=== PATIENT | male | born 1960 | race African-American/Black ===

== ENCOUNTER 2021-06-15 13:20 | Observation (INO) | payer MEDICARE ==
[~2021-06-15] VITALS: Ht 185.4 cm; Wt 138.6 kg
[2021-06-15] MEDS ORDERED: MORPHINE SULFATE 4 MG/ML INJ. IV/SQ PRN (14:00)
[2021-06-15] MEDS ORDERED: ASPIRIN 325 MG TABLET PO ONE (14:00)
[2021-06-15 14:19] LABS: BASO # 0.1 x10^3/uL (0.0-0.2); BASO % 1 % (0-3); EOS # 0.1 x10^3/uL (0.0-0.7); EOS % 1 % (0-3); HEMATOCRIT 36.3 % (39.0-53.0); HEMOGLOBIN 11.6 g/dL (13.0-17.5); LYMPH # 1.5 x10^3/uL (1.0-4.8); LYMPH % 19 % (24-48); MEAN CORPUSCULAR HEMOGLOBIN 26 pg (25-35); MEAN CORPUSCULAR HGB CONC 32 g/dL (31-37); MEAN CORPUSCULAR VOLUME 80 fL (79-100); MONO # 0.7 x10^3/uL (0.0-1.1); MONO % 9 % (0-9); NEUT # 5.4 x10^3/uL (1.8-7.7); NEUT % 70 % (31-73); PLATELET COUNT 229 x10^3/uL (140-400); RED BLOOD COUNT 4.53 x10^6/uL (4.30-5.70); WHITE BLOOD COUNT 7.7 x10^3/uL (4.0-11.0)
[2021-06-15 14:22] LABS: BARBITURATES NEG (NEG); BENZODIAZEPINES NEG (NEG); CANNABINOIDS NEG (NEG); COCAINE NEG (NEG); METHADONE NEG (NEG); OPIATES POS (NEG); PHENCYCLIDINE NEG (NEG)
[2021-06-15 14:28] LABS: AMPHETAMINE/METHAMPHETAMINE NEG (NEG)
[2021-06-15 14:29] LABS: PROTHROMBIN TIME PATIENT 13.6 SEC (11.7-14.0)
[2021-06-15 14:32] LABS: BILIRUBIN,URINE NEGATIVE (NEG); CLARITY,URINE CLEAR; COLOR,URINE YELLOW
[2021-06-15 14:33] LABS: NITRITE,URINE NEGATIVE (NEG); PROTEIN,URINE NEGATIVE (NEG-TRACE); UROBILINOGEN,URINE 0.2 mg/dL (0.2 mg/dL)
[2021-06-15 14:34] LABS: BACTERIA,URINE 0 /HPF (0-FEW); RBC,URINE 0 /HPF (0-2); WBC,URINE 0 /HPF (0-4)
[2021-06-15 14:35] LABS: CALCIUM 8.2 mg/dL (8.5-10.1); CREATININE 0.8 mg/dL (0.7-1.3); GFR 119.7; POTASSIUM 3.2 mmol/L (3.5-5.1)
[2021-06-15 14:41] LABS: ALBUMIN 3.5 g/dL (3.4-5.0); MAGNESIUM 1.9 mg/dL (1.8-2.4); TOTAL BILIRUBIN 0.3 mg/dL (0.2-1.0); TOTAL PROTEIN 6.9 g/dL (6.4-8.2)
--- NOTE | 2021-06-15 14:42 | RAD ---
AP chest. HISTORY: Chest pain AP view was taken of the chest. Patient's taken a poor inspiration. There is no effusion. Heart is up per normal in size. There is crowding of the vasculature from poor inspiration. There are no confluen t areas of infiltrate. Mild vascular congestion is possible. IMPRESSION: 1. Poor inspiration. 2. Crowding of the vasculature versus mild vascular congestion. Electronically signed by: Silviano Carter MD (06/15/2021 2:40 PM) [facility]
--- NOTE | 2021-06-15 15:00 | RAD ---
Left upper extremity venous Doppler. HISTORY: Pain for one month Ultrasound was used to evaluate the veins of the left upper extremity. Real-time imaging, color-flow imaging and Doppler were utilized for evaluation. Left jugular vein has normal flow with color imagin g and Doppler. Left subclavian vein has normal flow with color imaging and Doppler. Left axillary and brachial veins compress normally and have normal flow with color imaging and Doppler. Left basilic v ein compresses normally and has normal flow with color imaging and Doppler. Left radial and ulnar vei ns at the wrist compress normally and have normal flow with color imaging and Doppler. The cephalic v ein in the proximal forearm does not compress completely. The cephalic vein in the mid forearm compre sses completely. IMPRESSION: 1. Short segment of superficial venous thrombosis in the cephalic vein in the proximal forearm. 2. No deep venous thrombosis. Electronically signed by: Silviano Carter MD (06/15/2021 2:57 PM) [facility]
--- NOTE | 2021-06-15 15:05 | PHYS DOC ---
Past Medical History Past Medical History: DVT, Hypertension Past Surgical History: No Surgical History Smoking Status: Never Smoker Alcohol Use: None Drug Use: None General Adult EDM: Chief Complaint: CHEST PAIN HPI: HPI: Patient is a 60 year old male with history of hypertension, DVT currently on Xarelto who presents to the ED today with multiple complaints. Patient is complaining of 10 out of 10 substernal chest pain nonradiating in nature, symptoms began a week ago though he states symptoms were present when he was hospitalized a month ago. Patient states a month ago he had "delta" and was hospitalized at [facility] for month. He states he was on a vent for a while. He states he was discharged on May 19, 2021 and was sent to a rehab facility. He states during his admission he complained about left upper extremity pain, he states they did two venous Dopplers of the left upper extremity which were negative. He states he has continued to have the pain. He describes the pain as sensitivity to the left upper extremity especially when people anything touch it. He states this pain is from the multiple IV sticks he had as an inpatient. He states he is taking hydrocodone with no relief. He is also complaining of shortness of breath that began after cassandra Covid. He states symptoms are worse on exertion and is currently on oxygen 1 to 2 L. Review of Systems: Review of Systems: Constitutional: Denies fever or chills. [] Eyes: Denies change in visual acuity. [] HENT: Denies nasal congestion or sore throat. [] Respiratory: Reports shortness of breath Cardiovascular: Reports chest pain GI: Denies abdominal pain, nausea, vomiting, bloody stools or diarrhea. [] : Denies dysuria. [] Musculoskeletal: Reports left upper extremity pain Integument: Denies rash. [] ] Psychiatric: Denies depression or anxiety. [] Heart Score: C/O Chest Pain: N/A Risk Factors: Risk Factors: DM, Current or recent (<one month) smoker, HTN, HLP, family history of CAD, obesity. Risk Scores: Score 0 - 3: 2.5% MACE over next 6 weeks - Discharge Home Score 4 - 6: 20.3% MACE over next 6 weeks - Admit for Clinical Observation Score 7 - 10: 72.7% MACE over next 6 weeks - Early Invasive Strategies Current Medications: Current Medications Medications (Trade) Dose Ordered Sig/[facility] Start Time Stop Time Status Last Admin Dose Admin Aspirin (Evelyn Aspirin) 325 mg 1X ONCE 06/15/21 14:00 06/15/21 14:01 DC 06/15/21 14:16 325 MG Morphine Sulfate (Morphine Sulfate) 4 mg PRN Q15MIN PRN 06/15/21 14:00 06/16/21 13:59 06/15/21 14:27 4 MG Allergies: Allergies: Allergies Coded Allergies Type Severity Reaction Last Updated Verified naproxen Allergy Unknown 12/28/13 No Physical Exam: PE: Constitutional: Well developed, well nourished, no acute distress, non-toxic appearance. [] HENT: Normocephalic, atraumatic, bilateral external ears normal, oropharynx moist, no oral exudates, nose normal. [] Eyes: PERRLA, EOMI, conjunctiva normal, no discharge. [] Neck: Normal range of motion, no tenderness, supple, no stridor. [] Cardiovascular:Heart rate regular rhythm Lungs & Thorax: Diminished breath sounds Abdomen: Bowel sounds normal, soft, no tenderness, no masses, no pulsatile masses. [] Skin: Warm, dry, no erythema, no rash. [] Back: No tenderness, no CVA tenderness. [] Extremities: Left upper extremity with no obvious bruising, no redness, no signs of infection, diffuse tenderness throughout the left upper extremity, no cyanosis, no clubbing, ROM intact, no edema. [] Neurologic: Alert and oriented X 3, normal motor function, normal sensory function, no focal deficits noted. [] Psychologic: Affect normal, judgement normal, mood normal. [] Current Patient Data: Labs: Laboratory Tests Test 06/15/21 14:00 06/15/21 14:06 White Blood Count 7.7 x10^3/uL (4.0-11.0) Red Blood Count 4.53 x10^6/uL (4.30-5.70) Hemoglobin 11.6 g/dL (13.0-17.5) L Hematocrit 36.3 % (39.0-53.0) L Mean Corpuscular Volume 80 fL (79-100) Mean Corpuscular Hemoglobin 26 pg (25-35) Mean Corpuscular Hemoglobin Concent 32 g/dL (31-37) Red Cell Distribution Width 18.0 % (11.5-14.5) H Platelet Count 229 x10^3/uL (140-400) Neutrophils (%) (Auto) 70 % (31-73) Lymphocytes (%) (Auto) 19 % (24-48) L Monocytes (%) (Auto) 9 % (0-9) Eosinophils (%) (Auto) 1 % (0-3) Basophils (%) (Auto) 1 % (0-3) Neutrophils # (Auto) 5.4 x10^3/uL (1.8-7.7) Lymphocytes # (Auto) 1.5 x10^3/uL (1.0-4.8) Monocytes # (Auto) 0.7 x10^3/uL (0.0-1.1) Eosinophils # (Auto) 0.1 x10^3/uL (0.0-0.7) Basophils # (Auto) 0.1 x10^3/uL (0.0-0.2) Prothrombin Time 13.6 SEC (11.7-14.0) Prothrombin Time INR 1.0 (0.8-1.1) Activated Partial Thromboplast Time 34 SEC (24-38) Sodium Level 143 mmol/L (136-145) Potassium Level 3.2 mmol/L (3.5-5.1) L Chloride Level 107 mmol/L (98-107) Carbon Dioxide Level 28 mmol/L (21-32) Anion Gap 8 (6-14) Blood Urea Nitrogen 14 mg/dL (8-26) Creatinine 0.8 mg/dL (0.7-1.3) Estimated GFR (Cockcroft-Gault) 119.7 BUN/Creatinine Ratio 18 (6-20) Glucose Level 154 mg/dL (70-99) H Calcium Level 8.2 mg/dL (8.5-10.1) L Magnesium Level 1.9 mg/dL (1.8-2.4) Total Bilirubin 0.3 mg/dL (0.2-1.0) Aspartate Amino Transferase (AST) 17 U/L (15-37) Alanine Aminotransferase (ALT) 32 U/L (16-63) Alkaline Phosphatase 87 U/L (46-116) Troponin I High Sensitivity 9 ng/L (4-75) Total Protein 6.9 g/dL (6.4-8.2) Albumin 3.5 g/dL (3.4-5.0) Albumin/Globulin Ratio 1.0 (1.0-1.7) Urine Collection Type Unknown Urine Color Yellow Urine Clarity Clear Urine pH 6.0 (<5.0-8.0) Urine Specific Wells 1.010 (1.000-1.030) Urine Protein Negative mg/dL (NEG-TRACE) Urine Glucose (UA) >=1000 mg/dL (NEG) Urine Ketones (Stick) Negative mg/dL (NEG) Urine Blood Negative (NEG) Urine Nitrite Negative (NEG) Urine Bilirubin Negative (NEG) Urine Urobilinogen Dipstick 0.2 mg/dL (0.2 mg/dL) Urine Leukocyte Esterase Negative (NEG) Urine RBC 0 /HPF (0-2) Urine WBC 0 /HPF (0-4) Urine Bacteria 0 /HPF (0-FEW) Urine Opiates Screen Pos (NEG) Urine Methadone Screen Neg (NEG) Urine Barbiturates Neg (NEG) Urine Phencyclidine Screen Neg (NEG) Urine Amphetamine/Methamphetamine Neg (NEG) Urine Benzodiazepines Screen Neg (NEG) Urine Cocaine Screen Neg (NEG) Urine Cannabinoids Screen Neg (NEG) Urine Ethyl Alcohol Neg (NEG) Laboratory Tests 06/15/21 14:00 Laboratory Tests 06/15/21 14:00 Vital Signs: Vital Signs Date Time Temp Pulse Resp B/P (MAP) Pulse Ox O2 Delivery O2 Flow Rate FiO2 06/15/21 14:28 70 18 189/86 (120) 99 Nasal Cannula 2.0 06/15/21 13:20 98.0 98.0 EKG: EK interpreted by Dr. Chang sinus rhythm heart rate 68 no STEMI [] Radiology/Procedures: Radiology/Procedures: []PROCEDURE: PORTABLE CHEST 1V AP chest. HISTORY: Chest pain AP view was taken of the chest. Patient's taken a poor inspiration. There is no effusion. Heart is upper normal in size. There is crowding of the vasculature from poor inspiration. There are no confluent areas of infiltrate. Mild vascular congestion is possible. IMPRESSION: 1. Poor inspiration. 2. Crowding of the vasculature versus mild vascular congestion. Electronically signed by: Silviano Carter MD (06/15/2021 2:40 PM) [facility] DICTATED and SIGNED BY: SILVIANO CARTER MD DATE: 06/15/21 [id number] 0 PROCEDURE: VENOUS UPPER EXTREMITY LEFT Left upper extremity venous Doppler. HISTORY: Pain for one month Ultrasound was used to evaluate the veins of the left upper extremity. Real-time imaging, color-flow imaging and Doppler were utilized for evaluation. Left jugular vein has normal flow with color imaging and Doppler. Left subclavian vein has normal flow with color imaging and Doppler. Left axillary and brachial veins compress normally and have normal flow with color imaging and Doppler. Left basilic vein compresses normally and has normal flow with color imaging and Doppler. Left radial and ulnar veins at the wrist compress normally and have normal flow with color imaging and Doppler. The cephalic vein in the proximal forearm does not compress completely. The cephalic vein in the mid forearm compresses completely. IMPRESSION: 1. Short segment of superficial venous thrombosis in the cephalic vein in the proximal forearm. 2. No deep venous thrombosis. Electronically signed by: Silviano Carter MD (06/15/2021 2:57 PM) [facility] DICTATED and SIGNED BY: SILVIANO CARTER MD DATE: 06/15/21 [id number] 0 Course & Med Decision Making: Course & Med Decision Making Pertinent Labs and Imaging studies reviewed. (See chart for details) This a 60-year-old male patient presented to the ED today complaining of chest pain for 1 week, patient is also complaining of left upper extremity pain, symptoms have been going on since his hospitalization 2 months ago at [facility] for COVID19. He is also complaining of shortness of breath that began after being diagnosed with COVID19 2 months ago. Vitals on arrival to the ED temperature 98.0, heart rate 79, respiration 26 on 2 L of oxygen, O2 sats 96%, blood pressure 184/85 EKG is negative, high-sensitivity troponins are negative, CBC with a normal WBC, hemoglobin 11.6 with hematocrit of 36.3, CMP with potassium of 3.2, patient was given oral potassium replacement. Venous Doppler of the left upper extremity was noted for Short segment of superficial venous thrombosis in the cephalic vein in the proximal forearm- patient is already on Xarelto Spoke with Dr. Najera who accepted patient for admission Routine consult placed for cardiology Dragon Disclaimer: Dragon Disclaimer: This electronic medical record was generated, in whole or in part, using a voice recognition dictation system. Departure Departure Impression: Primary Impression: Chest pain Qualified Codes: R07.9 - Chest pain, unspecified Additional Impressions: Shortness of breath Left upper limb pain Disposition: ADMITTED INPATIENT Condition: STABLE Referrals: JEFFERSON BERGERON (PCP) GERRI CENTENO APRN Jun 15, 2021 15:05
[2021-06-15] MEDS ORDERED: LABETALOL 20 MG/4 ML DISP.SYRIN. IVP ONE (15:15)
[2021-06-15] MEDS ORDERED: hydrALAZINE 20 MG/ML VIAL. IVP ONE (17:15)
[2021-06-15] MEDS ORDERED: POTASSIUM CHLORIDE 20 MEQ TABLET.ER. PO ONE (17:15)
[2021-06-15] MEDS ORDERED: MORPHINE SULFATE 4 MG/ML INJ. IVP PRN (17:30)
[2021-06-15] MEDS ORDERED: ONDANSETRON PF 4 MG/2 ML VIAL. IVP PRN (17:30)
[2021-06-15] MEDS ORDERED: LABETALOL 20 MG/4 ML DISP.SYRIN. IVP PRN (17:30)
[2021-06-15] MEDS ORDERED: ACETAMINOPHEN 325 MG TABLET. PO PRN (17:30)
[2021-06-15 18:18] LABS: INFLUENZA A PATIENT NEGATIVE (NEGATIVE); INFLUENZA B PATIENT NEGATIVE (NEGATIVE)
--- NOTE | 2021-06-15 18:18 | HP ---
DATE OF SERVICE: 06/15/2021 ADMIT DATE: 06/15/2021 CHIEF COMPLAINT: Chest pain. HISTORY OF PRESENT ILLNESS: The patient is a pleasant 60-year-old male who is on Xarelto for DVTs. He also has a history of hypertension. He presents today with chest pain, rated at 10/10, it began a week ago, but it got worse. He apparently had COVID-19 and was at [facility] within the past month. He was on the ventilator for a while, discharged on 05/19 and then went to rehab. While there ____ discovered the DVT, was placed on Xarelto. I discussed the case with ER physician. We are going to admit the patient. PAST MEDICAL HISTORY: DVT, hypertension, chronic anticoagulation, recent COVID-19. ALLERGIES: NAPROSYN. FAMILY HISTORY: Diabetes. SOCIAL HISTORY: He is retired, used to work as a counselor. Does not drink, smoke or take drugs. MEDICATIONS: Reviewed, please refer to the MRAD. REVIEW OF SYSTEMS: GENERAL: No history of weight change, weakness or fevers. SKIN: No bruising, hair changes or rashes. EYES: No blurred, double or loss of vision. NOSE AND THROAT: No history of nosebleeds, hoarseness or sore throat. HEART: No history of palpitations, chest pain or shortness of breath on exertion. LUNGS: Denies cough, hemoptysis, wheezing or shortness of breath. GASTROINTESTINAL: Denies changes in appetite, nausea, vomiting, diarrhea or constipation. GENITOURINARY: No history of frequency, urgency, hesitancy or nocturia. NEUROLOGIC: Denies history of numbness, tingling, tremor or weakness. PSYCHIATRIC: No history of panic, anxiety or depression. ENDOCRINE: No history of heat or cold intolerance, polyuria or polydipsia. EXTREMITIES: Denies muscle weakness, joint pain, pain on walking or stiffness. PHYSICAL EXAMINATION: VITALS: Within normal limits and are stable. GENERAL: No apparent distress. Alert and oriented. HEENT: Normal cephalic atraumatic, external auditory canals are patent. EYES: Extraocular muscles are intact, pupils are equally round and reactive to light and accommodation. MUSCULOSKELETAL: Well developed, well nourished, good range of motion. ENDOCRINE: No thyromegaly was palpated. LYMPHATICS: No cervical chain or axillary nodes were noted. HEMATOPOIETIC: No bruising. NECK: Supple, no JVD, no thyromegaly was noted. LUNGS: Clear to auscultation in all lung oliver without rhonchi or wheezing. HEART: RRR, S1, S2 present. Peripheral pulses intact, no obvious murmurs were noted. ABDOMEN: Soft, nontender. Positive bowel sounds no organomegaly, normal bowel sounds. EXTREMITIES: Without any cyanosis, clubbing, or edema. Pedal pulses intact, Homans sign is negative. NEUROLOGIC: Normal speech, normal tone. A and O x3, moves all extremities, no obvious focal deficits. PSYCHIATRIC: Normal affect, normal mood. Stable. SKIN: No ulcerations or rashes, good skin turgor, no jaundice. VASCULAR: Good capillary refill, neurovascular bundle appears to be intact. LABORATORY DATA: Troponin is normal at 9. BNP is slightly high at 168. White count 7, hemoglobin 11.6, platelets 229. INR is 1. Urinalysis negative. Drug screen positive for opiates. Chest x-ray, poor inspiration effort with some mild vascular congestion. Upper extremity ultrasound showed no DVT. ASSESSMENT AND PLAN: Chest pain, rule out coronary artery disease, hypokalemia. The patient will be admitted. We will check serial enzymes, serial EKGs. Consult Cardiology. Home meds. Deep venous thrombosis prophylaxis. Full code. Cardiac monitoring. Replace his potassium. ANT/ALIS DR: Pedro TID: [id number]
[2021-06-15 19:35] VITALS: BP 175/91
[2021-06-15] MEDS ORDERED: RIVA20TA2 PO (19:38)
[2021-06-15] MEDS ORDERED: BYSTOLIC10 MG PO (19:38)
[2021-06-15] MEDS ORDERED: CRESTOR40 MG PO (19:39)
[2021-06-15] MEDS ORDERED: GLIM2TAB7 PO (19:40)
[2021-06-15] MEDS ORDERED: OMEP40CA7 PO (19:41)
[2021-06-15] MEDS ORDERED: HYDR50TA9 PO (19:41)
[2021-06-15] MEDS ORDERED: AMLO1CAP2 PO (19:41)
[2021-06-15] MEDS ORDERED: HYDR-2769 PO (19:42)
[2021-06-15] MEDS ORDERED: GABA600T7 PO (19:43)
[2021-06-15] MEDS ORDERED: ASPI81TA59 PO (19:44)
[2021-06-15] MEDS ORDERED: HYDR25TA PO (19:46)
[2021-06-15] MEDS ORDERED: TIZA-75 PO (19:46)
[2021-06-15] MEDS ORDERED: TADA5TAB PO (19:47)
[2021-06-15] MEDS ORDERED: DICL20GE TP (19:49)
[2021-06-15] MEDS ORDERED: hydrOXYzine 25 MG TABLET PO PRN (21:00)
[2021-06-15] MEDS ORDERED: DICLOFENAC SODIUM 1% TOPICAL GEL 100GM TUBE. TP PRN (21:00)
[2021-06-15] MEDS ORDERED: ATORVASTATIN CALCIUM 40 MG TABLET. PO SCH (21:00)
[2021-06-15] MEDS ORDERED: GABAPENTIN 300 MG CAPSULE. PO SCH ×2 (21:00→21:26)
[2021-06-15] MEDS ORDERED: tiZANidine 4 MG TABLET. PO PRN (21:00)
[2021-06-15] MEDS: METOPROLOL TART IMMED RELEASE 50 MG TABLET. PO SCH (21:00)
[2021-06-15] MEDS ORDERED: HYDR-2869 PO (21:11)
[2021-06-15] MEDS ORDERED: EMPA25TA3 PO (21:23)
[2021-06-15] MEDS ORDERED: RIVAROXABAN 10 MG TABLET. PO SCH (21:30)
[2021-06-15] MEDS: GLIMEPIRIDE 2 MG TABLET. PO SCH (21:32)
[2021-06-15] MEDS: HYDROcodone/APAP 10/325 1 TAB TABLET PO PRN (21:32)
[2021-06-15 22:50] VITALS: BP 166/85
[2021-06-16 02:50] VITALS: BP 189/96
[2021-06-16 05:21] VITALS: BP 167/91
--- NOTE | 2021-06-16 05:21 | EKG ---
[facility] [address] [place] [address] Test Date: 2021-06-15 Test Time: 13:27:05 Pat Name: DOMINIK NOGUEIRA Department: Room: 1 1 Gender: M [employer] Analyst: : 1960 Requested By: GERRI CENTENO Order Number: [id number] Reading MD: Kayode Wharton MD Measurements Intervals [place] Rate: 79 P: 39 [place]: 172 QRS: 4 QRSD: 94 T: 63 QT: 460 QTc: 529 Interpretive Statements SINUS RHYTHM Electronically Signed On 06-16-2021 11:00:12 [facility] by Kayode Wharton MD
[2021-06-16 06:26] LABS: BASO # 0.1 x10^3/uL (0.0-0.2); BASO % 1 % (0-3); EOS # 0.1 x10^3/uL (0.0-0.7); EOS % 2 % (0-3); HEMATOCRIT 36.2 % (39.0-53.0); HEMOGLOBIN 11.9 g/dL (13.0-17.5); LYMPH # 1.4 x10^3/uL (1.0-4.8); LYMPH % 19 % (24-48); MEAN CORPUSCULAR HEMOGLOBIN 26 pg (25-35); MEAN CORPUSCULAR HGB CONC 33 g/dL (31-37); MEAN CORPUSCULAR VOLUME 78 fL (79-100); MONO # 0.6 x10^3/uL (0.0-1.1); MONO % 7 % (0-9); NEUT # 5.3 x10^3/uL (1.8-7.7); NEUT % 71 % (31-73); PLATELET COUNT 228 x10^3/uL (140-400); RED BLOOD COUNT 4.65 x10^6/uL (4.30-5.70); RED CELL DISTRIBUTION WIDTH 17.7 % (11.5-14.5); WHITE BLOOD COUNT 7.5 x10^3/uL (4.0-11.0)
[2021-06-16 06:43] LABS: ALBUMIN 3.5 g/dL (3.4-5.0); ALBUMIN/GLOBULIN RATIO 0.9 (1.0-1.7); CALCIUM 8.3 mg/dL (8.5-10.1); CREATININE 0.7 mg/dL (0.7-1.3); GFR 139.7; POTASSIUM 3.2 mmol/L (3.5-5.1); TOTAL BILIRUBIN 0.4 mg/dL (0.2-1.0); TOTAL PROTEIN 7.4 g/dL (6.4-8.2)
[2021-06-16 07:00] VITALS: BP 196/64
--- NOTE | 2021-06-16 07:24 | EKG ---
[facility] [address] [place] [address] Test Date: 2021-06-15 Test Time: 14:34:08 Pat Name: DOMINIK NOGUEIRA Department: Room: 1 1 Gender: M Generation Engineer: : 1960 Requested By: GERRI CENTENO Order Number: [id number] Reading MD: Kayode Wharton MD Measurements Intervals [place] Rate: 68 P: 34 [place]: 178 QRS: -4 QRSD: 96 T: 5 QT: 424 QTc: 456 Interpretive Statements SINUS RHYTHM Electronically Signed On 06-16-2021 10:59:59 ASSOCIATE PATHOLOGIST by Kayode Wharton MD
[2021-06-16] MEDS ORDERED: PANTOPRAZOLE 40 MG TABLET.DR. PO SCH (07:30)
--- NOTE | 2021-06-16 08:13 | PDOC2 ---
[facility] [employer] 06/16/21 0813: CARDIAC CONSULT DATE OF CONSULT Date of Consult DATE: 06/16/21 TIME: 08:06 REASON FOR CONSULT Reason for Consult: Chest pain REFERRING PHYSICIAN Referring Physician: Leana SOURCE Source: Chart review, Patient HISTORY OF PRESENT ILLNESS HISTORY OF PRESENT ILLNESS This is a pleasant 60 yo male admitted for complains of chest pain. Reports of midchest burning nonradiating in the last 4-5 days. It seems that this occurs after meals particularly in the morning. He doubled his prilosec and actually got better. He has been taking tums. He has SOA but this has been chronic since he had Covid-19 PNA in 04/2021 and actually was on a ventilator at [facility] and no PE but noted with RLE DVT at that time. He has been getting outpt rehab and his breathing has been improving. He does utilize 2LPM at rest of O2 and 5 LPM when ambulating and no changes with requirement. Denies any palpitations, syncopal symptoms. No n/v. No jaw tightness. He does have this pain to his left arm and appear to be hyperesthesia and could not elevate the arm above his shoulder. He is suppose to see an orthopaedic MD. No recent falls or injury. He was told he had a heart attack 3 yrs ago in [place] but no procedures and had reported LHC and no noted blockages but unclear if he had any lesions. He is presently CP free. His BP has been up and down at home. PAST MEDICAL HISTORY Cardiovascular: HTN, Hyperlipidemia Pulmonary: Pneumonia, Other (Covid-19 04/2021; home O2 use) CENTRAL NERVOUS SYSTEM: Other (No pertinent history) GI: GERD Heme/Onc: No pertinent hx, Other (DVT 04/2021) Psych: No pertinent hx Musculoskeletal: Osteoarthritis Rheumatologic: No pertinent hx Infectious disease: No pertinent hx ENT: No pertinent hx Renal/: Other (Prostate issue) Endocrine: Diabetes Dermatology: No pertinent hx PAST SURGICAL HISTORY Past Surgical History: No pertinent history FAMILY HISTORY Family History: Hypertension SOCIAL HISTORY Smoke: No CURRENT MEDICATIONS CURRENT MEDICATIONS Current Medications Medications (Trade) Dose Ordered Sig/Andreas Route PRN Reason Start Time Stop Time Status Last Admin Dose Admin Aspirin (Evelyn Aspirin) 325 mg 1X ONCE PO 06/15/21 14:00 06/15/21 14:01 DC 06/15/21 14:16 Morphine Sulfate (Morphine Sulfate) 4 mg PRN Q15MIN PRN IV/SQ PAIN GREATER THAN 3/10 06/15/21 14:00 06/16/21 13:59 06/15/21 14:27 Labetalol HCl (Normodyne Iv Push) 10 mg 1X ONCE IVP 06/15/21 15:15 06/15/21 15:16 DC 06/15/21 15:21 Hydralazine HCl (Apresoline Inj) 10 mg 1X ONCE IVP 06/15/21 17:15 06/15/21 17:16 DC 06/15/21 17:18 Potassium Chloride (Klor-Con) 40 meq 1X ONCE PO 06/15/21 17:15 06/15/21 17:16 DC 06/15/21 17:16 Morphine Sulfate (Morphine Sulfate) 4 mg PRN Q2HR PRN IVP PAIN 06/15/21 17:30 06/16/21 17:29 06/15/21 18:17 Glimepiride (Amaryl) 2 mg BIDWMEALS PO 06/15/21 22:00 06/15/21 21:32 Acetaminophen/ Hydrocodone Bitart (Lortab 10/325) 1 tab PRN Q4HRS PRN PO PAIN 06/15/21 21:00 06/15/21 21:32 Hydroxyzine HCl (Atarax) 50 mg QHS PRN PO INSOMNIA 06/15/21 21:00 06/15/21 21:34 Rivaroxaban (Xarelto) 20 mg DAILYWSUP PO 06/15/21 21:30 06/15/21 21:32 Hydralazine HCl (Apresoline) 50 mg TID PO 06/15/21 22:00 06/15/21 21:31 Gabapentin (Neurontin) 600 mg QHS PO 06/15/21 21:26 06/15/21 21:31 ALLERGIES ALLERGIES: Coded Allergies: naproxen (Unverified Allergy, Intermediate, 06/15/21) ROS Review of System 14 point ROS evaluated with pertinent positives noted per HPI PHYSICAL EXAM General: Alert, Oriented X3, Cooperative, No acute distress HEENT: Atraumatic, Mucous membr. moist/pink Lungs: Clear to auscultation, Normal air movement Heart: Regular rate (SR), Other (distnat heart sounds) Abdomen: Soft, No tenderness, Other (obese) Extremities: No cyanosis, Other (1+ bilateral LE pitting edema) Skin: No breakdown, No significant lesion Neuro: Normal speech, Sensation intact Psych/Mental Status: Mental status NL, Mood NL MUSCULOSKELETAL: Other (limited left shoulder ROM) VITALS/I&O VITALS/I&O: Vital Signs Date Time Temp Pulse Resp B/P (MAP) Pulse Ox O2 Delivery O2 Flow Rate FiO2 06/16/21 05:21 70 167/91 (116) 06/16/21 02:50 98.1 20 94 Nasal Cannula 2.0 98.1 I & O 06/15/21 06/15/21 06/16/21 15:00 23:00 07:00 Intake Total 0 ml 0 ml Output Total 150 ml Balance 0 ml -150 ml LABS Lab: Laboratory Tests Test 06/15/21 14:00 06/15/21 14:06 06/15/21 16:02 06/15/21 17:50 White Blood Count 7.7 x10^3/uL (4.0-11.0) Red Blood Count 4.53 x10^6/uL (4.30-5.70) Hemoglobin 11.6 g/dL (13.0-17.5) L Hematocrit 36.3 % (39.0-53.0) L Mean Corpuscular Volume 80 fL (79-100) Mean Corpuscular Hemoglobin 26 pg (25-35) Mean Corpuscular Hemoglobin Concent 32 g/dL (31-37) Red Cell Distribution Width 18.0 % (11.5-14.5) H Platelet Count 229 x10^3/uL (140-400) Neutrophils (%) (Auto) 70 % (31-73) Lymphocytes (%) (Auto) 19 % (24-48) L Monocytes (%) (Auto) 9 % (0-9) Eosinophils (%) (Auto) 1 % (0-3) Basophils (%) (Auto) 1 % (0-3) Neutrophils # (Auto) 5.4 x10^3/uL (1.8-7.7) Lymphocytes # (Auto) 1.5 x10^3/uL (1.0-4.8) Monocytes # (Auto) 0.7 x10^3/uL (0.0-1.1) Eosinophils # (Auto) 0.1 x10^3/uL (0.0-0.7) Basophils # (Auto) 0.1 x10^3/uL (0.0-0.2) Prothrombin Time 13.6 SEC (11.7-14.0) Prothrombin Time INR 1.0 (0.8-1.1) Activated Partial Thromboplast Time 34 SEC (24-38) Sodium Level 143 mmol/L (136-145) Potassium Level 3.2 mmol/L (3.5-5.1) L Chloride Level 107 mmol/L (98-107) Carbon Dioxide Level 28 mmol/L (21-32) Anion Gap 8 (6-14) Blood Urea Nitrogen 14 mg/dL (8-26) Creatinine 0.8 mg/dL (0.7-1.3) Estimated GFR (Cockcroft-Gault) 119.7 BUN/Creatinine Ratio 18 (6-20) Glucose Level 154 mg/dL (70-99) H Calcium Level 8.2 mg/dL (8.5-10.1) L Magnesium Level 1.9 mg/dL (1.8-2.4) Total Bilirubin 0.3 mg/dL (0.2-1.0) Aspartate Amino Transferase (AST) 17 U/L (15-37) Alanine Aminotransferase (ALT) 32 U/L (16-63) Alkaline Phosphatase 87 U/L (46-116) Troponin I High Sensitivity 9 ng/L (4-75) 10 ng/L (4-75) AK-Oog-R-Type Natriuretic Peptide 168 pg/mL (0-124) H Total Protein 6.9 g/dL (6.4-8.2) Albumin 3.5 g/dL (3.4-5.0) Albumin/Globulin Ratio 1.0 (1.0-1.7) Urine Collection Type Unknown Urine Color Yellow Urine Clarity Clear Urine pH 6.0 (<5.0-8.0) Urine Specific [place] 1.010 (1.000-1.030) Urine Protein Negative mg/dL (NEG-TRACE) Urine Glucose (UA) >=1000 mg/dL (NEG) Urine Ketones (Stick) Negative mg/dL (NEG) Urine Blood Negative (NEG) Urine Nitrite Negative (NEG) Urine Bilirubin Negative (NEG) Urine Urobilinogen Dipstick 0.2 mg/dL (0.2 mg/dL) Urine Leukocyte Esterase Negative (NEG) Urine RBC 0 /HPF (0-2) Urine WBC 0 /HPF (0-4) Urine Bacteria 0 /HPF (0-FEW) Urine Opiates Screen Pos (NEG) Urine Methadone Screen Neg (NEG) Urine Barbiturates Neg (NEG) Urine Phencyclidine Screen Neg (NEG) Urine Amphetamine/Methamphetamine Neg (NEG) Urine Benzodiazepines Screen Neg (NEG) Urine Cocaine Screen Neg (NEG) Urine Cannabinoids Screen Neg (NEG) Urine Ethyl Alcohol Neg (NEG) Influenza Type A Antigen Negative (NEGATIVE) Influenza Type B Antigen Negative (NEGATIVE) SARS-CoV-2 Antigen (Rapid) Negative (NEGATIVE) Test 06/15/21 19:00 06/15/21 21:01 06/16/21 05:50 06/16/21 07:42 Troponin I High Sensitivity 10 ng/L (4-75) Glucose (Fingerstick) 196 mg/dL (70-99) H 134 mg/dL (70-99) H White Blood Count 7.5 x10^3/uL (4.0-11.0) Red Blood Count 4.65 x10^6/uL (4.30-5.70) Hemoglobin 11.9 g/dL (13.0-17.5) L Hematocrit 36.2 % (39.0-53.0) L Mean Corpuscular Volume 78 fL (79-100) L Mean Corpuscular Hemoglobin 26 pg (25-35) Mean Corpuscular Hemoglobin Concent 33 g/dL (31-37) Red Cell Distribution Width 17.7 % (11.5-14.5) H Platelet Count 228 x10^3/uL (140-400) Neutrophils (%) (Auto) 71 % (31-73) Lymphocytes (%) (Auto) 19 % (24-48) L Monocytes (%) (Auto) 7 % (0-9) Eosinophils (%) (Auto) 2 % (0-3) Basophils (%) (Auto) 1 % (0-3) Neutrophils # (Auto) 5.3 x10^3/uL (1.8-7.7) Lymphocytes # (Auto) 1.4 x10^3/uL (1.0-4.8) Monocytes # (Auto) 0.6 x10^3/uL (0.0-1.1) Eosinophils # (Auto) 0.1 x10^3/uL (0.0-0.7) Basophils # (Auto) 0.1 x10^3/uL (0.0-0.2) Sodium Level 142 mmol/L (136-145) Potassium Level 3.2 mmol/L (3.5-5.1) L Chloride Level 106 mmol/L (98-107) Carbon Dioxide Level 28 mmol/L (21-32) Anion Gap 8 (6-14) Blood Urea Nitrogen 12 mg/dL (8-26) Creatinine 0.7 mg/dL (0.7-1.3) Estimated GFR (Cockcroft-Gault) 139.7 BUN/Creatinine Ratio 17 (6-20) Glucose Level 139 mg/dL (70-99) H Calcium Level 8.3 mg/dL (8.5-10.1) L Total Bilirubin 0.4 mg/dL (0.2-1.0) Aspartate Amino Transferase (AST) 20 U/L (15-37) Alanine Aminotransferase (ALT) 30 U/L (16-63) Alkaline Phosphatase 87 U/L (46-116) Total Protein 7.4 g/dL (6.4-8.2) Albumin 3.5 g/dL (3.4-5.0) Albumin/Globulin Ratio 0.9 (1.0-1.7) L Laboratory Tests 06/15/21 14:00 06/16/21 05:50 Laboratory Tests 06/15/21 14:00 06/16/21 05:50 ASSESSMENT/PLAN ASSESSMENT/PLAN 1. Atypical chest pain: possibly GI 2. HTN urgency: appears to be uncontrolled at home 3. HLP 4. Possible prior hx of CAD 5. DM2 6. Morbid obesity 7. Hx of recent covid-19 PNA/ARDS with likely post acute covid-19 syndrome 8. recent RLE DVT and superficial venours thrombosis to left arm: noted 04/2021 at [facility] 9. Chronic respiratory failure: uses home O2 2LPM at rest and 5LPM with activity Recommendations 1. TTE 2. Resume home BP meds and adjustment per trend 3. PPI per PCP 4. Secondary prevention measures 5. Continue home xarelto 6. With his cardiac risk factors, will arrange for outpt lexiscan KATRAPATI,SKINNY S MD 06/16/21 1023: CARDIAC CONSULT ASSESSMENT/PLAN ASSESSMENT/PLAN The patient was seen and interviewed as well as examined at the bedside. The chart was reviewed. The case was discussed. Agree with the plan of care. JAVIER ADAIR APRN Jun 16, 2021 08:13 SKINNY STANTON MD Jun 16, 2021 10:23
[2021-06-16] MEDS ORDERED: POTASSIUM CHLORIDE 20 MEQ TABLET.ER. PO ONE (08:15)
[2021-06-16] MEDS ORDERED: hydroCHLOROthiazide 25 MG TABLET PO SCH (09:00)
[2021-06-16] MEDS ORDERED: ASPIRIN CHEWABLE 81 MG TABLET. PO SCH (09:00)
[2021-06-16] MEDS: METOPROLOL TART IMMED RELEASE 50 MG TABLET. PO SCH (09:00)
[2021-06-16] MEDS ORDERED: EMPAGLIFLOZIN 25 MG TABLET. PO SCH (09:00)
[2021-06-16] MEDS ORDERED: LISINOPRIL 20 MG TABLET PO SCH (09:00)
[2021-06-16] MEDS ORDERED: NON FORMULARY ITEM (Tadalafil (Cialis) 1 TAB) PO SCH (09:00)
[2021-06-16] MEDS: GLIMEPIRIDE 2 MG TABLET. PO SCH (09:14)
[2021-06-16] MEDS: HYDROcodone/APAP 10/325 1 TAB TABLET PO PRN ×2 (09:22→15:26)
[2021-06-16] MEDS ORDERED: LISI-130 PO (10:48)
--- NOTE | 2021-06-16 10:50 | SNU/HH DC ---
DISCHARGE WITH HOME HEALTH DISCHARGE INFORMATION: Final Diagnosis: Problems Medical Problems: (1) Chest pain Status: Acute (2) Left upper limb pain Status: Acute (3) Shortness of breath Status: Acute Condition on Discharge: Stable CODE STATUS: Code Status: Full HOME HEALTH: Face to Face: I certify this patient is under my care and that I, or a nurse practitioner or physician's product safety technical assistant working with me, had a face to face encounter that meets the physician face to face encounter requirements with this patient on []. Medical Complications: Other (Resolving atypical chest pain/recent history of Covid-19) Half-Way For: Assess Cardiopulm Status RN For Eval/Treatment: Yes Physical Therapy For: Evalulation/Treatment Occupational Therapy For: Evaluation/Treatment Home Health Aide For: Self-care [employer] For: Community Resources Pt Meets Homebound Status: Poor coordination w/ amb. POST DISCHARGE ORDERS: DIET AFTER DISCHARGE: Cardiac CERTIFICATION STATEMENT: Certification Statement: Certification Statement: Based on the above finding, I certify that this patient is confined to the home and needs intermittent halfway care, physical therapy and/or speech therapy, or continues to need occupational therapy.~ This patient is under my care, and I have initiated the establishment of the plan of care.~ This patient will be followed by myself or a community physician who will periodically review the plan of care. Home Meds Active Scripts Lisinopril (LISINOPRIL) 40 Mg Tablet, 40 MG PO DAILY for . for 90 Days, #90 TAB Prov:GORDON PIÑA K III DO 06/16/21 Reported Medications Empagliflozin (JARDIANCE) 25 Mg Tablet, 25 MG PO DAILY for Type 2 diabetes, TAB 06/15/21 Hydralazine Hcl (HYDRALAZINE HCL) 50 Mg Tablet, 1 TAB PO TID for , #90 TAB 5 Refills 06/15/21 Diclofenac Sodium (Voltaren Arthritis Pain) 20 Gm Gel..gram., 20 GM TP QID PRN for PAIN, EACH 06/15/21 Tadalafil (CIALIS) 5 Mg Tablet, 1 TAB PO DAILY for for prostate issues, #30 TAB 5 Refills 06/15/21 Tizanidine Hcl (TIZANIDINE HCL) 4 Mg Tablet, 1 TAB PO TID PRN for MUSCLE SPASMS, #90 TAB 06/15/21 Hydroxyzine Hcl (HYDROXYZINE HCL) 25 Mg Tablet, 2 TAB PO QHS PRN for INSOMNIA, #30 TAB 06/15/21 Aspirin (Children's Aspirin) 81 Mg Tab.chew, 1 TAB PO DAILY for for 30 Days, #30 TAB 0 Refills 06/15/21 Gabapentin (GABAPENTIN) 600 Mg Tablet, 600 MG PO QHS PRN for PAIN, TAB 06/15/21 Hydrocodone Bit/Acetaminophen (HYDROCODONE-APAP 10-325 ) 1 Tab Tablet, 1 TAB PO PRN Q4HRS PRN for PAIN, TAB 0 Refills 06/15/21 Amlodipine Besylate/Benazepril (LOTREL 10-40 MG CAPSULE) 1 Each Capsule, 1 CAP PO DAILY for , #30 CAP 5 Refills 06/15/21 Omeprazole (OMEPRAZOLE) 40 Mg Capsule.dr, 1 CAP PO DAILY for , #30 CAP 3 Refills 06/15/21 Glimepiride (GLIMEPIRIDE) 2 Mg Tablet, 1 TAB PO BID for , #30 TAB 5 Refills 06/15/21 Rosuvastatin Calcium (CRESTOR) 40 Mg Tablet, 0.5 TAB PO HS for , #30 TAB 5 Refi lls 06/15/21 Nebivolol Hcl (BYSTOLIC) 10 Mg Tablet, 10 MG PO DAILY for , TAB 06/15/21 Rivaroxaban (XARELTO) 20 Mg Tablet, 1 TAB PO QHS for for 30 Days, #30 TAB 0 Refills with food 06/15/21 Discontinued Reported Medications Hydrochlorothiazide (HYDROCHLOROTHIAZIDE TABLET) 50 Mg Tablet, 50 MG PO TID for DIURETIC, TAB 0 Refills 06/15/21 GORDON PIÑA III DO Jun 16, 2021 10:50
[2021-06-16 11:00] VITALS: BP 155/85
--- NOTE | 2021-06-16 11:25 | NUR ---
SS following for discharge planning. SS reviewed pt chart and discussed with pt RN. Pt is currently requiring oxygen at two liters nasal canula. COVID19 negative. Pt has home oxygen. Discharge order on the chart for home with self care.
[2021-06-16 12:30] VITALS: BP 196/64
--- NOTE | 2021-06-16 12:46 | DS ---
DATE OF DISCHARGE: 06/16/2021 ADMITTING DIAGNOSES: Chest pain, hypokalemia. DISCHARGE DIAGNOSES: Resolving atypical chest pain, resolving hypokalemia, history of deep vein thrombosis, hypertension, chronic anticoagulation, recent COVID-19. CONSULTS: Cardiology. PROCEDURES: None. HOSPITAL COURSE: The patient is a pleasant middle-aged male who presented with chest pain. We admitted him, did serial enzymes, serial EKGs. We consulted Cardiology, it is felt his pain is atypical. They recommend discharge on home blood pressure meds and they will arrange for an outpatient Lexiscan. DISPOSITION: Home. ACTIVITY: As tolerated. DIET: Low sodium. DISCHARGE MEDICATIONS: Please see the MRAD. Amlodipine/benazepril 10/40 one a day, lisinopril 40 a day, aspirin 81 a day, Voltaren, Jardiance 25 a day, gabapentin 600 at bedtime, glimepiride 2 b.i.d., hydralazine 50 a day, hydrocodone p.r.n., hydroxyzine 2 tabs at bedtime, Bystolic 10 mg daily, omeprazole 40 a day, Xarelto 20 a day, Crestor 20 a day, Cialis 5 daily, and tizanidine 4 t.i.d. p.r.n. TOTAL TIME: [address]: ANT/olu TID: [id number]
--- NOTE | 2021-06-16 18:03 | NUR ---
Discharge Note: DOMINIK NOGUEIRA [facility] Discharge instructions and discharge home medications reviewed with Patient and a copy given. All questions have been answered and understanding verbalized.
== END 2021-06-16 18:06 | disposition home or self-care (01) ==
LOC: ER 13:20 → INTOOBSV 17:05 → 6 SOUTH 17:05
PROVIDERS: ADMIT Internal Medicine; ATTEND Internal Medicine
DX: R07.89 Other chest pain (principal); Z20.822 Contact with and (suspected) exposure to COVID-19; E87.6 Hypokalemia; I25.10 Atherosclerotic heart disease of native coronary artery without angina pectoris; I10 Essential (primary) hypertension; Z86.718 Personal history of other venous thrombosis and embolism; Z86.16 Personal history of COVID-19; Z87.01 Personal history of pneumonia (recurrent); J96.10 Chronic respiratory failure, unspecified whether with hypoxia or hypercapnia; E11.9 Type 2 diabetes mellitus without complications; E66.01 Morbid (severe) obesity due to excess calories; E78.5 Hyperlipidemia, unspecified; I16.0 Hypertensive urgency; I25.2 Old myocardial infarction; I82.619 Acute embolism and thrombosis of superficial veins of unspecified upper extremity; M19.90 Unspecified osteoarthritis, unspecified site; K21.9 Gastro-esophageal reflux disease without esophagitis; M25.512 Pain in left shoulder; Z79.01 Long term (current) use of anticoagulants; Z79.899 Other long term (current) drug therapy; Z98.890 Other specified postprocedural states
CPT/HCPCS: 36415; 71045; 80053; 80307; 81001; 82962; 83735; 83880; 84484; 85025; 85610; 85730; 87428; 93005; 93971; 96374; 96375; 96376; 99285; G0378; J0360; J2270; J3490; U0003; G0379

== ENCOUNTER → 2021-09-03 | Outpatient (CLI) | payer MEDICARE ==
[~2021-09-03] MED LIST: AMLO1CAP2 PO; ASPI81TA59 PO; BYSTOLIC10 MG PO; CRESTOR40 MG PO; DICL20GE TP; EMPA25TA3 PO; GABA600T7 PO; GLIM2TAB7 PO; HYDR-2769 PO; HYDR-2869 PO; HYDR25TA PO; HYDR50TA9 PO; LISI-130 PO; OMEP40CA7 PO; RIVA20TA2 PO; TADA5TAB PO; TIZA-75 PO
--- NOTE | 2021-09-03 11:20 | KCIC ---
EXAMINATION: US DPLX VENOUS EXTREMITY LOWER RT (LOWER EXTREMITY VENOUS ULTRASOUND) CLINICAL HISTORY: Follow-up right lower extremity DVT. TECHNIQUE: Sonographic grayscale images obtained of the right lower extremity deep venous system with color flow Doppler, compression, and augmentation techniques as indicated. Images obtained and stor ed in a permanent archive. COMPARISON: None available FINDINGS: No evidence of absent flow or incompressibility within the common femoral vein, femoral vein, or popl iteal vein. Visualized calf veins appear patent on limited evaluation. IMPRESSION: No evidence of right lower extremity DVT. Electronically signed by: Lior Gonzalez DO (09/03/2021 11:18 AM) [facility]
== END ==
LOC: KCIC US 10:11
PROVIDERS: ATTEND Nurse Practitioner
DX: I82.401 Acute embolism and thrombosis of unspecified deep veins of right lower extremity (principal)
CPT/HCPCS: 93971